=== PATIENT | male | born 1995 | race American Indian/Alaskan Native ===

== ENCOUNTER 2018-03-10 06:18 | Emergency (ER) | payer SELFPAY ==
[2018-03-10] MEDS ORDERED: BENADRYL IV ONE (07:15)
[2018-03-10] MEDS ORDERED: PEPCID IV ONE (07:15)
--- NOTE | 2018-03-10 07:26 | Emergency Department Report ---
ED General Adult HPI - General Chief complaint: Allergic Reaction Stated complaint: ALLERGIC REACTION Time Seen by Provider: 03/10/18 06:56 Source: patient, RN notes reviewed Mode of arrival: Ambulatory Limitations: No Limitations - History of Present Illness Initial comments: This is a 22-year-old male who is unknown to this provider, presenting to the ER with an allergic reaction. He complains of diffuse body rash, which has been present for 2 days, started on his chest, then went to his arms and went to his legs. He and also endorses some lip swelling. There is no intraoral involvement. his symptoms are constant, they do not radiate anywhere, and he endorses no exacerbating or relieving factors. He specifically endorses no new creams, colognes, travel, although he thinks he recently had exposure to pets at a friend's house. Patient also indicates central chest tightness which has been present for a few hours, it does not radiate anywhere, and has no exacerbating or relieving factors, he further endorses no cocaine use, recent aspirin use, DVT or pulmonary embolus risk factors. -: Gradual Location: mouth, chest, back, abdomen, left, right, upper extremity, lower extremity Severity scale (0 -10): 4 Consistency: constant Improves with: none Worsens with: none Associated Symptoms: denies other symptoms, chest pain, rash. denies: confusion , cough, diaphoresis, fever/chills, headaches, loss of appetite, malaise, nausea /vomiting, seizure, shortness of breath, syncope, weakness - Related Data Previous Rx's Medication Instructions Recorded Last Taken Type Acetaminophen/Codeine [Tylenol #3] 1 tab PO Q8H PRN #15 tablet 05/19/15 Unknown Rx Penicillin Vk [Veetids TAB] 500 mg PO Q8H #30 tablet 05/19/15 Unknown Rx EPINEPHrine [Epipen 2-Sudheer] 0.3 mg IM DAILY PRN #2 ml 03/10/18 Unknown Rx Famotidine [Pepcid] 20 mg PO BID #10 tablet 03/10/18 Unknown Rx diphenhydrAMINE [Benadryl] 50 mg PO Q8HR PRN #20 capsule 03/10/18 Unknown Rx predniSONE [Deltasone] 40 mg PO QDAY #8 tab 03/10/18 Unknown Rx Allergies Allergy/AdvReac Type Severity Reaction Status Date / Time No Known Allergies Allergy Verified 05/18/15 20:37 ED Review of Systems ROS: Stated complaint: ALLERGIC REACTION Other details as noted in HPI Comment: All other systems reviewed and negative ED Past Medical Hx - Past Medical History Previous Medical History?: No - Surgical History Past Surgical History?: No - Social History Smoking Status: Never Smoker Substance Use Type: None - Medications Home Medications: Home Medications Medication Instructions Recorded Confirmed Last Taken Type Acetaminophen/Codeine [Tylenol #3] 1 tab PO Q8H PRN #15 tablet 05/19/15 Unknown Rx Penicillin Vk [Veetids TAB] 500 mg PO Q8H #30 tablet 05/19/15 Unknown Rx EPINEPHrine [Epipen 2-Sudheer] 0.3 mg IM DAILY PRN #2 ml 03/10/18 Unknown Rx Famotidine [Pepcid] 20 mg PO BID #10 tablet 03/10/18 Unknown Rx diphenhydrAMINE [Benadryl] 50 mg PO Q8HR PRN #20 capsule 03/10/18 Unknown Rx predniSONE [Deltasone] 40 mg PO QDAY #8 tab 03/10/18 Unknown Rx ED Physical Exam - General Limitations: No Limitations General appearance: alert, in no apparent distress - Head Head exam: Present: atraumatic, normocephalic - Eye Eye exam: Present: normal appearance, PERRL, EOMI. Absent: nystagmus - ENT ENT exam: Present: normal exam, normal orophraynx, mucous membranes moist, normal external ear exam, other (there is minimal superficial lip swelling. There is no stridor or trismus. There is no swelling of the tongue. There is no uvula involvement. The patient is speaking in full sentences) - Neck Neck exam: Present: normal inspection, full ROM - Respiratory Respiratory exam: Present: normal lung sounds bilaterally. Absent: respiratory distress - Cardiovascular Cardiovascular Exam: Present: regular rate, normal rhythm, normal heart sounds. Absent: bradycardia, tachycardia, irregular rhythm, systolic murmur, diastolic murmur, rubs, gallop - GI/Abdominal GI/Abdominal exam: Present: soft, normal bowel sounds. Absent: distended, tenderness, guarding, rebound, rigid, pulsatile mass - Rectal Rectal exam: Present: deferred - Extremities Exam Extremities exam: Present: full ROM, normal capillary refill. Absent: tenderness, pedal edema, joint swelling, calf tenderness - Back Exam Back exam: Present: normal inspection, full ROM. Absent: tenderness, CVA tenderness (R), paraspinal tenderness, vertebral tenderness - Neurological Exam Neurological exam: Present: alert, oriented X3, CN II-XII intact, normal gait, other (Extraocular movements intact. Tongue midline. No facial droop. Facial sensation intact to light touch in the V1, V2, V3 distribution bilaterally. 5 and 5 strength in 4 extremities.. Sensation is intact to light touch in 4 extremities.). Absent: motor sensory deficit - Psychiatric Psychiatric exam: Present: normal affect, normal mood - Skin Skin exam: Present: warm, rash, urticaria, other (diffuse well-circumscribed macules which are nontender and theo. These are on the arms, legs, chest, abdomen. There is no purpura. There is no ecchymosis.) ED Course Vital Signs 03/10/18 03/10/18 03/10/18 06:17 06:29 06:46 Temperature 97.8 F 97.8 F Pulse Rate 110 H 114 H 85 Respiratory 18 17 19 Rate Blood Pressure 84/57 103/55 103/68 Blood Pressure [Right] O2 Sat by Pulse 99 100 92 Oximetry 03/10/18 06:53 Temperature 97.9 F Pulse Rate 79 Respiratory 19 Rate Blood Pressure Blood Pressure 103/68 [Right] O2 Sat by Pulse 97 Oximetry - Reevaluation(s) Reevaluation #1: 03/10/18 11:51 Troponin negative 2, EKG unchanged 2, patient resting comfortably in no distress, he will be discharged to follow up, return precautions are reviewed. ED Medical Decision Making - Lab Data Result diagrams: 03/10/18 07:30 03/10/18 07:30 Vital Signs 03/10/18 03/10/18 03/10/18 06:17 06:29 06:46 Temperature 97.8 F 97.8 F Pulse Rate 110 H 114 H 85 Respiratory 18 17 19 Rate Blood Pressure 84/57 103/55 103/68 Blood Pressure [Right] O2 Sat by Pulse 99 100 92 Oximetry 03/10/18 06:53 Temperature 97.9 F Pulse Rate 79 Respiratory 19 Rate Blood Pressure Blood Pressure 103/68 [Right] O2 Sat by Pulse 97 Oximetry Lab Results 03/10/18 03/10/18 03/10/18 Range/Units 07:30 07:30 07:30 WBC 12.7 H (4.5-11.0) K/mm3 RBC 6.38 H (3.65-5.03) M/mm3 Hgb 16.4 H (11.8-15.2) gm/dl Hct 51.6 H (35.5-45.6) % MCV 81 L (84-94) fl MCH 26 L (28-32) pg MCHC 32 (32-34) % RDW 14.8 (13.2-15.2) % Plt Count 207 (140-440) K/mm3 Sodium 134 L (137-145) mmol/L Potassium 4.5 (3.6-5.0) mmol/L Chloride 95.8 L (98-107) mmol/L Carbon Dioxide 28 (22-30) mmol/L Anion Gap 15 mmol/L BUN 16 (9-20) mg/dL Creatinine 0.6 L (0.8-1.5) mg/dL Estimated GFR > 60 ml/min BUN/Creatinine Ratio 27 % Glucose 103 H (75-100) mg/dL Calcium 9.0 (8.4-10.2) mg/dL Total Creatine Kinase 57 (55-170) units/L Troponin T < 0.010 (0.00-0.029) ng/mL 03/10/18 Range/Units 09:10 WBC (4.5-11.0) K/mm3 RBC (3.65-5.03) M/mm3 Hgb (11.8-15.2) gm/dl Hct (35.5-45.6) % MCV (84-94) fl MCH (28-32) pg MCHC (32-34) % RDW (13.2-15.2) % Plt Count (140-440) K/mm3 Sodium (137-145) mmol/L Potassium (3.6-5.0) mmol/L Chloride (98-107) mmol/L Carbon Dioxide (22-30) mmol/L Anion Gap mmol/L BUN (9-20) mg/dL Creatinine (0.8-1.5) mg/dL Estimated GFR ml/min BUN/Creatinine Ratio % Glucose (75-100) mg/dL Calcium (8.4-10.2) mg/dL Total Creatine Kinase (55-170) units/L Troponin T < 0.010 (0.00-0.029) ng/mL - EKG Data -: EKG Interpreted by Me - EKG Data When compared to previous EKG there are: previous EKG unavailable 03/10/18 09:04 Normal sinus, 89 bpm, normal axis, QTC prolonged, incomplete right bundle- branch block, borderline atrial enlargement, abnormal EKG, not consistent with a STEMI - Radiology Data Radiology results: pending, image reviewed interpreted by me: X-ray of the chest, interpreted by me, no acute disease - Medical Decision Making Differential diagnosis, including but not limited to: Allergic reaction, pneumonia, acute coronary syndrome, GERD, gastritis, hiatal hernia Assessment and plan: 22-year-old male with 2 complaints. His initial complaint appears to be consistent with an undifferentiated allergic reaction. He has diffuse macules, no lesions on the palms or soles, and superficial lip swelling without any intraoral involvement. He is afebrile with reassuring vital signs, clinically sober, and speaking in full sentences. He'll be treated with an allergy cocktail and observed. Patient also describes nonspecific chest tightness which started at 7:00 in the morning. There are no DVT or pulmonary embolus risk factors he is low risk by well's criteria, he is low risk by heart score, he is low risk by CRISTIN score. We will obtain EKG 2, troponin 2, he can follow up with outpatient cardiology for his incidental abnormal EKG. Critical care attestation.: If time is entered above; I have spent that time in minutes in the direct care of this critically ill patient, excluding procedure time. ED Disposition Clinical Impression: Abnormal EKG, Rash Disposition: DC-01 TO HOME OR SELFCARE Is pt being admited?: No Does the pt Need Aspirin: No Condition: Stable Instructions: Electrocardiogram (GEN), Anaphylaxis (ED) Additional Instructions: Follow-up with a employee benefits director within the next week for your abnormal EKG. Take the medications as directed. Follow up with the primary care doctor within the next month. Return to the ER right away with new pain, worsened pain, migration of pain, fevers, chills, lethargy, irritability, projectile vomiting and change in mental status, confusion, inability to tolerate feeds. Referrals: PRIMARY CARE,MD [Primary Care Provider] - 3-5 Days [facility] [Provider Group] - 3-5 Days [facility] [Provider Group] - 3-5 Days MICHELLE ALEMAN MD [Staff Physician] - 3-5 Days
[2018-03-10 07:42] LABS: Hematocrit 51.6 % (35.5-45.6); Hemoglobin 16.4 gm/dl (11.8-15.2); Mean Corpuscular HGB Conc 32 % (32-34); Mean Corpuscular Volume 81 fl (84-94); Platelet Count 207 K/mm3 (140-440); Red Blood Count 6.38 M/mm3 (3.65-5.03); Red Cell Distribution Width 14.8 % (13.2-15.2)
[2018-03-10 07:54] LABS: Mean Corpuscular Hemoglobin 26 pg (28-32)
[2018-03-10 07:58] LABS: BUN/Creatinine Ratio 27; Blood Urea Nitrogen 16 mg/dL (9-20); Hemolysis Index 94
[2018-03-10 13:30] VITALS: BP 105/66
== END 2018-03-10 13:30 | disposition home or self-care (01) ==
LOC: ED 06:18
DX: R21 Rash and other nonspecific skin eruption (principal); R94.31 Abnormal electrocardiogram [ECG] [EKG]
CPT/HCPCS: 36415; 71045; 80048; 82550; 84484; 85027; 93005; 93010; 96374; 96375; 99284; J1200; J2930